=== PATIENT | female | born 1945 | race Hispanic/Latino ===

== ENCOUNTER 2017-02-14 13:16 | Outpatient (CLI) | payer MEDICARE ==
--- NOTE | 2017-02-14 14:10 | Mammography Report ---
Screening mammogram: Routine views compared to prior exams dating back to 2014. The left breast is asymmetrically smaller and somewhat greater in fibroglandular density. No focal mass and no architectural distortion. No suspicious calcification. No interval change from prior exam. CAD used. Impression: Stable exam. Recommendation: Annual mammogram followup. BI-RADS CATEGORY: 1 = Negative ACR BI-RADS MAMMOGRAPHIC CODES: 0 = Needs additional imaging evaluation; 1 = Negative; 2 = Benign; 3 = Probably benign; 4 = Suspicious; 5 = Malignant; 6 = Known biopsy-proven malignancy COMMENT: 1. Dense breast tissue, i.e., adenosis, fibrocystic changes, etc., may obscure an underlying neoplasm. 2. Approximately 10% of cancers are not detected with mammography. 3. A negative mammography report should not delay biopsy if a clinically suspicious mass is present.
== END 2017-02-14 13:17 | disposition home or self-care (01) ==
LOC: SPVWC 13:16
PROVIDERS: ATTEND Internal Medicine
DX: Z12.31 Encounter for screening mammogram for malignant neoplasm of breast (principal); I10 Essential (primary) hypertension
CPT/HCPCS: 77067; G0202

== ENCOUNTER 2017-04-19 11:06 | Outpatient (CLI) | payer MEDICARE | END 2017-04-19 11:07 | disposition home or self-care (01) | LOC: LAB 11:06 | PROVIDERS: ATTEND Psychiatry & Neurology Neurology | DX: D64.9 Anemia, unspecified (principal); I10 Essential (primary) hypertension | CPT/HCPCS: 36415; 82533; 82607; 82747 ==

== ENCOUNTER 2018-03-14 11:51 | Outpatient (CLI) | payer MEDICARE ==
--- NOTE | 2018-03-15 08:22 | Mammography Report ---
Bilateral mammogram: Compared to 02/14/17. CAD study utilized. Findings: Predominance adipose tissue bilaterally. No mass or microcalcification. Benign axillary nodes. Impression: Benign findings. Annual followup recommended. BI-RADS CATEGORY: 2 = Benign ACR BI-RADS MAMMOGRAPHIC CODES: 0 = Needs additional imaging evaluation; 1 = Negative; 2 = Benign; 3 = Probably benign; 4 = Suspicious; 5 = Malignant; 6 = Known biopsy-proven malignancy COMMENT: 1. Dense breast tissue, i.e., adenosis, fibrocystic changes, etc., may obscure an underlying neoplasm. 2. Approximately 10% of cancers are not detected with mammography. 3. A negative mammography report should not delay biopsy if a clinically suspicious mass is present.
== END 2018-03-14 11:52 | disposition home or self-care (01) ==
LOC: SPVWC 11:51
PROVIDERS: ATTEND Internal Medicine
DX: Z12.31 Encounter for screening mammogram for malignant neoplasm of breast (principal); I10 Essential (primary) hypertension; M19.90 Unspecified osteoarthritis, unspecified site; Z90.710 Acquired absence of both cervix and uterus
CPT/HCPCS: 77067

== ENCOUNTER 2019-03-19 13:04 | Outpatient (CLI) | payer MEDICARE ==
--- NOTE | 2019-03-24 15:08 | Mammography Report ---
DIGITAL SCREENING MAMMOGRAM WITH CAD, 03/19/2019 INDICATION: Routine screening mammography. TECHNIQUE: Digital bilateral 2D mammography was obtained in the craniocaudal and mediolateral obliq ue projections. This examination was interpreted with the benefit of Computer-Aided Detection analysi s. COMPARISON: 03/14/2018 FINDINGS: Breast Density: The breasts are heterogeneously dense, which may obscure small masses. There is no evidence of dominant mass, suspicious calcifications or architectural distortion in eithe r breast. The left breast is smaller than the right. IMPRESSION: No mammographic evidence of malignancy. Follow up recommendation: Routine yearly BI-RADS Category 2: Benign. A "normal" or negative report should not discourage follow up or biopsy of a clinically significant f inding. A written summary of these findings will be mailed to the patient. The patient will be entered into a mammography reporting system which will generate a reminder letter for the patient's next appointmen t at the appropriate interval. The [employer] recommends yearly mammograms starting at age 40 and continuing as l daphne as a woman is in good health. Breast MRI is recommended for women with an approximate 20-25% or greater lifetime risk of breast cancer, including women with a strong family history of breast or ova marie cancer or who have been treated for Hodgkin's disease. Signer Name: Liu Garsia MD Signed: 03/24/2019 3:04 PM Workstation Name: [id number]
== END 2019-03-19 13:05 | disposition home or self-care (01) ==
LOC: SPVWC 13:04
PROVIDERS: ATTEND Internal Medicine
DX: Z12.31 Encounter for screening mammogram for malignant neoplasm of breast (principal)
CPT/HCPCS: 77067

== ENCOUNTER 2020-09-23 15:35 | Outpatient (CLI) | payer MEDICARE ==
--- NOTE | 2020-09-23 16:56 | Mammography Report ---
DIGITAL SCREENING MAMMOGRAM WITH CAD, 09/23/2020 CLINICAL INFORMATION / INDICATION: Routine screening TECHNIQUE: Digital bilateral 2D mammography was obtained in the craniocaudal and mediolateral obliqu e projections. This examination was interpreted with the benefit of Computer-Aided Detection analysis . COMPARISON: 03/19/2019 FINDINGS: Breast Density: The breasts are heterogeneously dense, which may obscure small masses. No dominant mass, suspicious calcifications, or architectural distortion in either breast. Mild benign-appearing calcifications are again seen on the left. IMPRESSION: No mammographic evidence of malignancy. Follow up recommendation: Routine yearly BI-RADS Category 2: Benign. A "normal" or negative report should not discourage follow up or biopsy of a clinically significant f inding. A written summary of these findings will be mailed to the patient. The patient will be entered into a mammography reporting system which will generate a reminder letter for the patient's next appointmen t at the appropriate interval. The [employer] recommends yearly mammograms starting at age 40 and continuing as l dahpne as a woman is in good health. Breast MRI is recommended for women with an approximate 20-25% or greater lifetime risk of breast cancer, including women with a strong family history of breast or ova marie cancer or who have been treated for Hodgkin's disease. Signer Name: Eben Acuna MD Signed: 09/23/2020 4:52 PM Workstation Name: [id number]
== END 2020-09-23 15:36 | disposition home or self-care (01) ==
LOC: SPVWC 15:35
PROVIDERS: ATTEND Internal Medicine
DX: Z12.31 Encounter for screening mammogram for malignant neoplasm of breast (principal); N64.89 Other specified disorders of breast
CPT/HCPCS: 77067